=== PATIENT | female | born 1985 | race Caucasian/White ===

== ENCOUNTER 2017-02-21 17:10 | Emergency (ER) | payer MEDICAID ==
[~2017-02-21] VITALS: Ht 160 cm; Wt 60.8 kg
--- NOTE | 2017-02-21 17:58 | NUR ---
Patient is seen taking fluids & crackers well from the ER snacks cart,+good appetite.
--- NOTE | 2017-02-21 18:27 | NUR ---
Patient is seen talking on her personal electronic device, NAD, respiration:easy
--- NOTE | 2017-02-21 19:04 | NUR ---
Patient discharged to home in stable conditon. Written and verbal after care instructions given. Patient verbalizes understanding of instructions.pt walks in steady gait. pt with no sign of resp problem
== END 2017-02-21 19:08 | disposition home or self-care (01) ==
LOC: ER 17:10
DX: J40 Bronchitis, not specified as acute or chronic (principal); Z88.0 Allergy status to penicillin
CPT/HCPCS: A4663